=== PATIENT | male | born 1970 | race Caucasian/White ===

== ENCOUNTER 2021-04-18 19:05 | Emergency (ER) | payer OTHER ==
[~2021-04-18] VITALS: Ht 177.8 cm; Wt 110.0 kg
[2021-04-18 19:37] VITALS: BP 132/81
--- NOTE | 2021-04-18 21:36 | NUR ---
PT CALLED FOR ROOM NA X 1
--- NOTE | 2021-04-18 21:45 | NUR ---
NA X 2
--- NOTE | 2021-04-18 22:36 | NUR ---
NA X 3
== END 2021-04-18 22:37 | disposition left against medical advice (07) ==
LOC: ED 19:30
DX: R10.9 Unspecified abdominal pain (principal); M54.9 Dorsalgia, unspecified
CPT/HCPCS: 99281